=== PATIENT | female | born 1990 | race African-American/Black ===

== ENCOUNTER 2020-03-03 08:19 | Emergency (ER) | payer SELFPAY ==
[~2020-03-03] VITALS: Ht 160 cm; Wt 94.8 kg
--- NOTE | 2020-03-03 08:36 | NUR ---
SEEN AND EXAMINED BY .
[2020-03-03] MEDS ORDERED: diphenhydrAMINE HCL 50 MG/ML VIAL ONE (08:55)
[2020-03-03] MEDS ORDERED: HYDROMORPHONE 1 MG/1 ML DISP.SYRIN ONE (08:56)
[2020-03-03] MEDS ORDERED: ONDANSETRON HCL/PF 4 MG/2 ML VIAL ONE (08:56)
[2020-03-03 09:00] LABS: BASOPHILS % (AUTO) 0.5 % (0.0-2.0); EOSINOPHILS % (AUTO) 5.5 % (0.0-6.0); HEMATOCRIT 33 % (33-45); HEMOGLOBIN 10.8 g/dL (11.5-14.8); LYMPHOCYTES # (AUTO) 2.2 /CMM (0.8-4.8); LYMPHOCYTES % (AUTO) 25.5 % (20.0-44.0); MEAN CORPUSCULAR HGB CONC 33 g/dl (31.0-36.0); MEAN CORPUSCULAR VOLUME 82 fL (82-100); MONOCYTES % (AUTO) 11.2 % (2.0-12.0); NEUTROPHILS # (AUTO) 4.9 /CMM (1.8-8.9); NEUTROPHILS % (AUTO) 57.3 % (43.0-81.0); PLATELET COUNT (AUTO) 304 /CMM (150-450); RED BLOOD CELL COUNT(AUTO) 4.05 MIL/uL (4.0-5.2); WHITE BLOOD COUNT (AUTO) 8.6 K/uL (4.3-11.0)
[2020-03-03] MEDS ORDERED: IV NS 0.9% 1,000 ML BAG IV ONE (09:00)
[2020-03-03] MEDS ORDERED: HYDROMORPHONE 1 MG/1 ML DISP.SYRIN IV ONE (09:00)
[2020-03-03] MEDS ORDERED: ONDANSETRON HCL/PF 4 MG/2 ML VIAL IV ONE (09:00)
[2020-03-03] MEDS ORDERED: diphenhydrAMINE HCL 50 MG/ML VIAL IV ONE (09:00)
[2020-03-03 09:06] LABS: CALCIUM, SERUM 8.3 mg/dL (8.5-10.1); CREATININE 0.8 mg/dL (0.6-1.3); POTASSIUM 3.3 mmol/L (3.5-5.1)
[2020-03-03 09:12] LABS: ALBUMIN 2.8 g/dL (3.4-5.0); BILIRUBIN,DIRECT 0.1 mg/dL (0.0-0.2); BILIRUBIN,TOTAL 0.2 mg/dL (0.2-1.0)
--- NOTE | 2020-03-03 09:36 | NUR ---
Patient discharged to home in stable condition. Written and verbal after care instructions given. Patient verbalizes understanding of instruction. IV removed. Catheter intact and site benign. Pressure and 4x4 applied to site. No bleeding noted.
[2020-03-03 09:39] VITALS: BP 115/78
== END 2020-03-03 09:39 | disposition home or self-care (01) ==
LOC: ER 08:23
DX: D57.00 Hb-SS disease with crisis, unspecified (principal); Z88.0 Allergy status to penicillin; Z88.1 Allergy status to other antibiotic agents
CPT/HCPCS: 36415; 71045; 80048; 80076; 83690; 85025; 96361; 96374; 96375; 99284; J1170; J1200; J2405; J7030

== ENCOUNTER 2020-08-18 08:44 | Emergency (ER) | payer SELFPAY ==
[~2020-08-18] VITALS: Ht 160 cm; Wt 86.2 kg
[2020-08-18] MEDS ORDERED: HYDROMORPHONE MDV 0.5 MG in IV D5W 50 ML IV STA (09:04)
[2020-08-18] MEDS ORDERED: IV NS 0.9% 500 ML BAG IV ONE (09:30)
[2020-08-18] MEDS ORDERED: DIPHENHYDRAMINE HCL 12.5 MG/5 ML UDC PO ONE ×2 (09:30→11:00)
--- NOTE | 2020-08-18 09:30 | NUR ---
BIB SELF C/O BODY PAIN FOR 2 DAYS. HX SICKLE CELL. PT AAOX4, VSS. RR EVEN & UNLABORED. DENIES CP, SOB, DIZZINESS, N/V/D AT THIS TIME. PT SEEN & EVAL'D BY DR. FARLEY. WILL CONT TO MONITOR.
[2020-08-18] MEDS ORDERED: HYDROMORPHONE 1 MG/1 ML DISP.SYRIN ONE ×2 (10:21→11:07)
[2020-08-18] MEDS ORDERED: diphenhydrAMINE HCL 50 MG/ML VIAL ONE (10:22)
[2020-08-18 10:31] LABS: BASOPHILS # (AUTO) 0.1 /CMM (0.0-0.2); BASOPHILS % (AUTO) 0.9 % (0.0-2.0); EOSINOPHILS % (AUTO) 5.9 % (0.0-6.0); HEMATOCRIT 34 % (33-45); HEMOGLOBIN 10.5 g/dL (11.5-14.8); LYMPHOCYTES % (AUTO) 16.8 % (20.0-44.0); MEAN CORPUSCULAR HGB CONC 31 g/dl (31.0-36.0); MEAN CORPUSCULAR VOLUME 69 fL (82-100); MONOCYTES % (AUTO) 8.7 % (2.0-12.0); NEUTROPHILS % (AUTO) 67.7 % (43.0-81.0); PLATELET COUNT (AUTO) 356 /CMM (150-450); RED BLOOD CELL COUNT(AUTO) 4.91 MIL/uL (4.0-5.2); WHITE BLOOD COUNT (AUTO) 11.8 K/uL (4.3-11.0)
--- NOTE | 2020-08-18 10:37 | NUR ---
MEDICATED PER ERMD ORDER, PT ADRI WELL. WILL CONT TO MONITOR.
[2020-08-18 10:38] LABS: CALCIUM, SERUM 8.9 mg/dL (8.5-10.1); CREATININE 0.9 mg/dL (0.6-1.3); POTASSIUM 3.7 mmol/L (3.5-5.1)
[2020-08-18 10:44] LABS: ALBUMIN 3.4 g/dL (3.4-5.0); BILIRUBIN,DIRECT 0.1 mg/dL (0.0-0.2); BILIRUBIN,TOTAL 0.2 mg/dL (0.2-1.0)
[2020-08-18] MEDS ORDERED: diphenhydrAMINE HCL 50 MG/ML VIAL IV ONE (11:00)
[2020-08-18] MEDS ORDERED: HYDROMORPHONE 1 MG/1 ML DISP.SYRIN IV ONE (11:00)
[2020-08-18] MEDS ORDERED: diphenhydrAMINE HCL 25 MG CAPSULE ONE (11:07)
--- NOTE | 2020-08-18 11:45 | NUR ---
DILAUDID 1MG IN 500ML NS ENDTIME 1145H. WELL TOLERATED. V/S STABLE.
[2020-08-18 11:47] VITALS: BP 116/82
== END 2020-08-18 11:48 | disposition home or self-care (01) ==
LOC: ER 08:49
DX: D57.00 Hb-SS disease with crisis, unspecified (principal); Z88.0 Allergy status to penicillin; Z88.1 Allergy status to other antibiotic agents
CPT/HCPCS: 36415; 80048; 80076; 85025; 85045; 86850; 96365; 96375; 96376; 99284; J1170 ×3; J1200; J7040; J7060 ×2; Q0163 ×3

== ENCOUNTER 2020-09-10 19:10 | Emergency (ER) | payer SELFPAY ==
[~2020-09-10] VITALS: Ht 160 cm; Wt 86.2 kg
--- NOTE | 2020-09-10 19:15 | NUR ---
The patient bibs for c/o gen body pain x 2days, worse today, hx of sickle cell. Rates pain 8/10. In room air and denies SOB. Respiration regular and unlabored. Will continue to monitor the patient.
[2020-09-10] MEDS ORDERED: IV NS 0.9% 1,000 ML BAG IV ONE (20:00)
[2020-09-10] MEDS ORDERED: HYDROMORPHONE 1 MG/1 ML DISP.SYRIN ONE ×3 (20:30→22:18)
[2020-09-10] MEDS ORDERED: ONDANSETRON HCL/PF 4 MG/2 ML VIAL IVP ONE (20:30)
[2020-09-10] MEDS ORDERED: HYDROMORPHONE INJ 2 MG/ML DISP.SYRIN IV ONE (20:30)
[2020-09-10] MEDS ORDERED: diphenhydrAMINE HCL 50 MG/ML VIAL IV ONE (20:30)
[2020-09-10] MEDS ORDERED: ONDANSETRON HCL/PF 4 MG/2 ML VIAL ONE (20:31)
[2020-09-10] MEDS ORDERED: diphenhydrAMINE HCL 50 MG/ML VIAL ONE (20:31)
--- NOTE | 2020-09-10 20:41 | NUR ---
CALLED PHARMACY RE: DILAUDID PULLED OUT DILAUDID 1MG, WASTED 1MG INSTEAD OF 0.5MG WITH TIMBO CAMP CALLED [facility] PHARMACIST TO REPORT, PER [facility], DO A RETURN, BUT UNABLE D/T MEDS BEING WASTED ALREADY. ADMINISTERED DILAUDID 0.5MG IVP. WITNESSED WITH ROSA MARIA MARTINI RN.
[2020-09-10 20:45] LABS: BASOPHILS # (AUTO) 0.1 /CMM (0.0-0.2); BASOPHILS % (AUTO) 1.1 % (0.0-2.0); EOSINOPHILS % (AUTO) 6.1 % (0.0-6.0); HEMATOCRIT 32 % (33-45); HEMOGLOBIN 10.1 g/dL (11.5-14.8); LYMPHOCYTES # (AUTO) 2.2 /CMM (0.8-4.8); MEAN CORPUSCULAR HGB CONC 32 g/dl (31.0-36.0); MEAN CORPUSCULAR VOLUME 71 fL (82-100); MONOCYTES # (AUTO) 0.8 /CMM (0.1-1.30); NEUTROPHILS # (AUTO) 6.4 /CMM (1.8-8.9); NEUTROPHILS % (AUTO) 62.8 % (43.0-81.0); PLATELET COUNT (AUTO) 331 /CMM (150-450); RED BLOOD CELL COUNT(AUTO) 4.48 MIL/uL (4.0-5.2); WHITE BLOOD COUNT (AUTO) 10.1 K/uL (4.3-11.0)
[2020-09-10 21:06] LABS: EOSINOPHILS % (MANUAL) 5 % (0-4); LYMPHOCYTES % (MANUAL) 28 % (16-48); MONOCYTES % (MANUAL) 6 % (0-11.0); NEUTROPHILS % (MANUAL) 61 (42-76)
[2020-09-10 21:19] LABS: CALCIUM, SERUM 9.2 mg/dL (8.5-10.1); CREATININE 0.7 mg/dL (0.6-1.3)
[2020-09-10 21:26] LABS: ALBUMIN 3.2 g/dL (3.4-5.0); BILIRUBIN,DIRECT 0.1 mg/dL (0.0-0.2); BILIRUBIN,TOTAL 0.2 mg/dL (0.2-1.0); TOTAL PROTEIN, SERUM 7.7 g/dL (6.4-8.2)
[2020-09-10] MEDS ORDERED: HYDROMORPHONE 1 MG/1 ML DISP.SYRIN IV ONE ×2 (22:00→22:30)
[2020-09-10 23:24] VITALS: BP 134/70
== END 2020-09-10 23:25 | disposition home or self-care (01) ==
LOC: ER 19:11
DX: D57.00 Hb-SS disease with crisis, unspecified (principal); D50.9 Iron deficiency anemia, unspecified; E16.2 Hypoglycemia, unspecified; E87.8 Other disorders of electrolyte and fluid balance, not elsewhere classified; Z88.0 Allergy status to penicillin; Z88.1 Allergy status to other antibiotic agents
CPT/HCPCS: 36415; 80048; 80076; 85007; 85025; 85045; 96361; 96374; 96375; 96376; 99284; J1170 ×3; J1200; J2405; J7030

== ENCOUNTER 2020-10-10 19:23 | Emergency (ER) | payer SELFPAY ==
[~2020-10-10] VITALS: Ht 160 cm; Wt 90.7 kg
--- NOTE | 2020-10-10 19:48 | NUR ---
PRSENTED TO THE ER FOR C/O GNERALIZED BODY FEVER, NO FEVER, NO COUGH. PT W. HX OF SICKLE CELL ANEMIA. AMBULATORY TO BED 3 ER. WAS PLACED ON A MONITOR, VSS. WILL CONT TO MONITOR
[2020-10-10] MEDS ORDERED: ONDANSETRON HCL/PF 4 MG/2 ML VIAL IVP ONE (20:00)
[2020-10-10] MEDS ORDERED: HYDROMORPHONE INJ 2 MG/ML DISP.SYRIN IV ONE (20:00)
[2020-10-10] MEDS ORDERED: IV NS 0.9% 1,000 ML BAG IV ONE ×2 (20:00→23:00)
[2020-10-10] MEDS ORDERED: ONDANSETRON HCL/PF 4 MG/2 ML VIAL ONE (20:08)
[2020-10-10] MEDS ORDERED: HYDROMORPHONE 1 MG/1 ML DISP.SYRIN ONE ×3 (20:08→23:12)
--- NOTE | 2020-10-10 21:02 | NUR ---
MULTIPLR ATTEMPTS TO START AN IV LINE BY TWO DIFFERENT RNs. UNSUCCESSFUL. DR ONEILL AND LUZ ELENA CHAVEZ MADE AWARE
[2020-10-10 21:12] LABS: CALCIUM, SERUM 9.2 mg/dL (8.5-10.1); CREATININE 0.8 mg/dL (0.6-1.3); POTASSIUM 3.4 mmol/L (3.5-5.1)
[2020-10-10] MEDS ORDERED: diphenhydrAMINE HCL 50 MG/ML VIAL ONE ×2 (21:14→23:12)
[2020-10-10 21:18] LABS: BILIRUBIN,DIRECT 0.1 mg/dL (0.0-0.2); BILIRUBIN,TOTAL 0.3 mg/dL (0.2-1.0); TOTAL PROTEIN, SERUM 7.5 g/dL (6.4-8.2)
[2020-10-10] MEDS ORDERED: diphenhydrAMINE HCL 50 MG/ML VIAL IV ONE ×2 (21:30→23:00)
[2020-10-10 22:01] LABS: BASOPHILS % (AUTO) 0.2 % (0.0-2.0); EOSINOPHILS % (AUTO) 3.7 % (0.0-6.0); HEMATOCRIT 30 % (33-45); HEMOGLOBIN 9.6 g/dL (11.5-14.8); LYMPHOCYTES # (AUTO) 1.9 /CMM (0.8-4.8); LYMPHOCYTES % (AUTO) 17.9 % (20.0-44.0); MEAN CORPUSCULAR HGB CONC 32 g/dl (31.0-36.0); MEAN CORPUSCULAR VOLUME 73 fL (82-100); MONOCYTES # (AUTO) 0.8 /CMM (0.1-1.30); MONOCYTES % (AUTO) 7.7 % (2.0-12.0); NEUTROPHILS # (AUTO) 7.5 /CMM (1.8-8.9); NEUTROPHILS % (AUTO) 70.5 % (43.0-81.0); PLATELET COUNT (AUTO) 298 /CMM (150-450); RED BLOOD CELL COUNT(AUTO) 4.03 MIL/uL (4.0-5.2); WHITE BLOOD COUNT (AUTO) 10.6 K/uL (4.3-11.0)
[2020-10-10] MEDS ORDERED: HYDROMORPHONE 1 MG/1 ML DISP.SYRIN IV ONE ×2 (22:30→23:00)
[2020-10-10] MEDS ORDERED: OXYC10TA49 PO (23:05)
--- NOTE | 2020-10-10 23:15 | NUR ---
DILAUDID 0.5MG WAS WASTED, WITHNESSED BY ANOTHER RN, CHRISTIANO; AND 0.5G GIVEN ORDERED .
--- NOTE | 2020-10-11 00:09 | NUR ---
PT is medically stable for d/c. IV removed. Catheter intact and site benign. Pressure and 4x4 applied to site. No bleeding noted.Patient discharged to home in stable condition. Rx and Written and verbal after care instructions given. Patient verbalizes understanding of instruction.
[2020-10-11 00:10] VITALS: BP 131/77
== END 2020-10-11 00:10 | disposition home or self-care (01) ==
LOC: ER 19:23
DX: D57.00 Hb-SS disease with crisis, unspecified (principal); E66.8 Other obesity; Z68.35 Body mass index [BMI] 35.0-35.9, adult; Z88.1 Allergy status to other antibiotic agents; Z79.899 Other long term (current) drug therapy; Z86.73 Personal history of transient ischemic attack (TIA), and cerebral infarction without residual deficits; Z88.0 Allergy status to penicillin
CPT/HCPCS: 36415; 71045; 80048; 80076; 84702; 85025; 85045; 85730; 86850; 93005; 96361; 96374; 96375; 96376; 99285; J1170 ×2; J1200 ×2; J2405; J7030 ×2

== ENCOUNTER 2020-10-13 14:00 | Emergency (ER) | payer SELFPAY ==
[~2020-10-13] VITALS: Ht 160 cm; Wt 90.7 kg
[~2020-10-13 14:00] MED LIST: OXYC10TA49 PO
--- NOTE | 2020-10-13 14:41 | NUR ---
DR MAN AT BEDSIDE FOR EVAL.
[2020-10-13] MEDS ORDERED: IV NS 0.9% 1,000 ML BAG IV ONE (15:00)
[2020-10-13] MEDS ORDERED: HYDROMORPHONE MDV 0.5 MG in IV D5W 50 ML IV PRN (15:00)
[2020-10-13] MEDS ORDERED: DIPHENHYDRAMINE HCL 12.5 MG/5 ML UDC PO ONE (15:00)
[2020-10-13] MEDS ORDERED: diphenhydrAMINE HCL 25 MG CAPSULE ONE (16:23)
[2020-10-13] MEDS ORDERED: HYDROMORPHONE 1 MG/1 ML DISP.SYRIN ONE (16:24)
--- NOTE | 2020-10-13 16:36 | NUR ---
PIN DRAFTING MACHINE OPERATOR AT BEDSIDE FOR EVAL.
[2020-10-13 16:47] LABS: BASOPHILS # (AUTO) 0.1 /CMM (0.0-0.2); BASOPHILS % (AUTO) 0.5 % (0.0-2.0); EOSINOPHILS % (AUTO) 7.7 % (0.0-6.0); HEMATOCRIT 31 % (33-45); HEMOGLOBIN 9.7 g/dL (11.5-14.8); LYMPHOCYTES # (AUTO) 1.7 /CMM (0.8-4.8); LYMPHOCYTES % (AUTO) 15.2 % (20.0-44.0); MEAN CORPUSCULAR HGB CONC 32 g/dl (31.0-36.0); MEAN CORPUSCULAR VOLUME 73 fL (82-100); MONOCYTES # (AUTO) 1.1 /CMM (0.1-1.30); MONOCYTES % (AUTO) 9.6 % (2.0-12.0); NEUTROPHILS # (AUTO) 7.4 /CMM (1.8-8.9); PLATELET COUNT (AUTO) 308 /CMM (150-450); RED BLOOD CELL COUNT(AUTO) 4.21 MIL/uL (4.0-5.2); WHITE BLOOD COUNT (AUTO) 11.1 K/uL (4.3-11.0)
[2020-10-13 16:54] LABS: CALCIUM, SERUM 9.2 mg/dL (8.5-10.1); CREATININE 0.6 mg/dL (0.6-1.3); POTASSIUM 3.9 mmol/L (3.5-5.1)
[2020-10-13 16:59] LABS: ALBUMIN 2.8 g/dL (3.4-5.0); BILIRUBIN,DIRECT 0.1 mg/dL (0.0-0.2); BILIRUBIN,TOTAL 0.2 mg/dL (0.2-1.0); TOTAL PROTEIN, SERUM 7.1 g/dL (6.4-8.2)
--- NOTE | 2020-10-13 17:44 | NUR ---
Patient discharged to home in stable condition. Written and verbal after care instructions given. Patient verbalizes understanding of instruction.IV removed. Catheter intact and site benign. Pressure and 4x4 applied to site. No bleeding noted.
[2020-10-13 17:45] VITALS: BP 115/70
[2020-10-13 17:47] LABS: EOSINOPHILS % (MANUAL) 4 % (0-4); LYMPHOCYTES % (MANUAL) 22 % (16-48); MONOCYTES % (MANUAL) 7 % (0-11.0); NEUTROPHILS % (MANUAL) 67 (42-76)
== END 2020-10-13 17:45 | disposition home or self-care (01) ==
LOC: ER 14:13
DX: D50.9 Iron deficiency anemia, unspecified (principal); M79.10 Myalgia, unspecified site; G89.29 Other chronic pain; Z86.73 Personal history of transient ischemic attack (TIA), and cerebral infarction without residual deficits; Z88.0 Allergy status to penicillin; Z88.1 Allergy status to other antibiotic agents
CPT/HCPCS: 36415; 71045; 80048; 80076; 85007; 85025; 85045; 85660; 93005; 96365; 99285; J1170; J7030; J7060; Q0163

== ENCOUNTER 2020-12-26 21:46 | Emergency (ER) | payer SELFPAY ==
[~2020-12-26] VITALS: Ht 160 cm; Wt 90.7 kg
--- NOTE | 2020-12-26 22:25 | NUR ---
PT BIBS FROM HOME WITH C/O OF ONGOING VAGINAL BLEEEDING S/P D&C ABOUT 2 MONTHS AGO, BLEEDING STOPPED 3 DAYS AGO AND HAD A SUDDEN EPISODE TOPAY. PT WAS SEEN AND EXAMINED BY DR BEAL. BREATHING EVEN AND UNLABORED, VS STABLE. PT ATTACHED TO MONITOR AND PULSE OX. WILL CONTINUE TO MONITOR AND CARRY OUT MD ORDERS.
--- NOTE | 2020-12-26 22:35 | NUR ---
IV LINE ESTABLISHED AT [facility] 24G, PATENT AND FLUSHING WELL.
--- NOTE | 2020-12-26 22:36 | NUR ---
BLOOD DRAWN AND SENT TO LAB.
--- NOTE | 2020-12-26 22:45 | NUR ---
URINE COLLECTED AND SENT TO LAB
--- NOTE | 2020-12-26 22:50 | NUR ---
PT C/O PAIN AND ITCHING ON IV SITE AT [facility]. IV CATHETER REMOVED, NO BLEEDING NOTED. REINSERTED ANOTHER IV LINE AT [facility] 24G BY JORGE IZQUIERDO. IV PATENT AND FLUSHING.
[2020-12-26 22:55] LABS: BASOPHILS # (AUTO) 0.1 K/uL (0.0-0.2); BASOPHILS % (AUTO) 1.5 % (0.0-2.0); EOSINOPHILS % (AUTO) 5.3 % (0.0-6.0); HEMATOCRIT 33 % (33-45); HEMOGLOBIN 10.1 g/dL (11.5-14.8); LYMPHOCYTES # (AUTO) 2.6 K/uL (0.8-4.8); LYMPHOCYTES % (AUTO) 29.7 % (20.0-44.0); MEAN CORPUSCULAR HGB CONC 31 g/dl (31.0-36.0); MEAN CORPUSCULAR VOLUME 70 fL (82-100); MONOCYTES # (AUTO) 0.8 K/uL (0.1-1.30); MONOCYTES % (AUTO) 8.9 % (2.0-12.0); NEUTROPHILS # (AUTO) 4.8 K/uL (1.8-8.9); NEUTROPHILS % (AUTO) 54.6 % (43.0-81.0); PLATELET COUNT (AUTO) 406 K/uL (150-450); RED BLOOD CELL COUNT(AUTO) 4.71 MIL/uL (4.0-5.2); WHITE BLOOD COUNT (AUTO) 8.8 K/uL (4.3-11.0)
[2020-12-26] MEDS ORDERED: HYDROMORPHONE INJ 2 MG/ML DISP.SYRIN IV ONE (23:00)
[2020-12-26] MEDS ORDERED: IV NS 0.9% 500 ML BAG IV ONE (23:00)
[2020-12-26] MEDS ORDERED: HYDROMORPHONE 1 MG/1 ML DISP.SYRIN ONE (23:07)
[2020-12-26 23:12] LABS: CREATININE 0.9 mg/dL (0.6-1.3); POTASSIUM 3.9 mmol/L (3.5-5.1)
[2020-12-26 23:17] LABS: ALBUMIN 3.6 g/dL (3.4-5.0); BILIRUBIN,DIRECT 0.1 mg/dL (0.0-0.2); BILIRUBIN,TOTAL 0.2 mg/dL (0.2-1.0); TOTAL PROTEIN, SERUM 8.3 g/dL (6.4-8.2)
[2020-12-26] MEDS ORDERED: diphenhydrAMINE HCL 50 MG/ML VIAL IV ONE (23:30)
[2020-12-26 23:33] LABS: BILIRUBIN,URINE Negative (NEGATIVE); COLOR,URINE YELLOW (YELLOW); LEUKOCYTE ESTERASE ,URINE Negative (NEGATIVE); NITRITE, URINE Negative (NEGATIVE); PH,URINE 5.5 (5.0-8.0); PROTEIN,URINE Negative (NEGATIVE); UGLUCOSE Negative (NEGATIVE); UROBILINOGEN,URINE 0.2 EU/dL (0.2)
[2020-12-26] MEDS ORDERED: diphenhydrAMINE HCL 50 MG/ML VIAL ONE (23:35)
[2020-12-26 23:49] LABS: BACTERIA,URINE Rare /HPF (None Seen); SQUAMOUS EPITHELIAL CELL,UR Few /HPF (None Seen); WBC,URINE NONE SEEN /HPF (0-3)
--- NOTE | 2020-12-27 00:48 | NUR ---
Patient discharged to home in stable condition. Written and verbal after care instructions given. Patient upset, stated she's still in pain and wanted to speak with MD. Dr Diaz went to bedside and explained to pt current findings. Pt refused to sign discharge paperwork. IV line removed, pressure and 2x2 applied. Pt ambulatory with a steady gait.
[2020-12-27 01:18] VITALS: BP 123/82
== END 2020-12-27 00:48 | disposition home or self-care (01) ==
LOC: ER 21:46
DX: N93.8 Other specified abnormal uterine and vaginal bleeding (principal); G89.29 Other chronic pain; E66.9 Obesity, unspecified; Z68.35 Body mass index [BMI] 35.0-35.9, adult; Z86.73 Personal history of transient ischemic attack (TIA), and cerebral infarction without residual deficits; Z90.49 Acquired absence of other specified parts of digestive tract; Z88.0 Allergy status to penicillin; Z88.1 Allergy status to other antibiotic agents; Z79.899 Other long term (current) drug therapy
CPT/HCPCS: 36415; 76856; 80048; 80076; 81001; 84703; 85007; 85025; 85730; 96361; 96374; 96375; 99284; J1170; J1200; J7040

== ENCOUNTER 2021-07-07 19:56 | Emergency (ER) | payer SELFPAY ==
[~2021-07-07] VITALS: Ht 160 cm; Wt 99.8 kg
--- NOTE | 2021-07-07 20:50 | NUR ---
BIBS FOR C/O GENERALIZED BODY PAIN DUE TO SICKLE CELL DIS X 4 DAYS. PATIENT ALERT AND ORIENTED X3. AMBULATORY WITH NON LABORED BREATHING. PLACED IN BED 10 ON MONITOR
[2021-07-07] MEDS ORDERED: HYDROMORPHONE 1 MG/1 ML DISP.SYRIN IV ONE (21:30)
[2021-07-07] MEDS ORDERED: HYDROMORPHONE 1 MG/1 ML DISP.SYRIN ONE ×2 (21:42→23:59)
[2021-07-07] MEDS ORDERED: diphenhydrAMINE HCL 50 MG/ML VIAL ONE ×2 (21:43→22:58)
[2021-07-07] MEDS ORDERED: diphenhydrAMINE HCL 50 MG/ML VIAL IV ONE ×2 (22:00→23:00)
--- NOTE | 2021-07-07 22:03 | NUR ---
ER [employer] HR DEVELOPER @ BEDSIDE
[2021-07-07 22:21] LABS: CALCIUM, SERUM 8.8 mg/dL (8.5-10.1); POTASSIUM 3.9 mmol/L (3.5-5.1)
[2021-07-07 22:27] LABS: BASOPHILS # (AUTO) 0.1 K/uL (0.0-0.2); BASOPHILS % (AUTO) 1.3 % (0.0-2.0); HEMATOCRIT 32 % (33-45); HEMOGLOBIN 9.7 g/dL (11.5-14.8); LYMPHOCYTES # (AUTO) 2.4 K/uL (0.8-4.8); LYMPHOCYTES % (AUTO) 29.9 % (20.0-44.0); MEAN CORPUSCULAR HGB CONC 30 g/dl (31.0-36.0); MEAN CORPUSCULAR VOLUME 65 fL (82-100); MONOCYTES # (AUTO) 0.5 K/uL (0.1-1.30); MONOCYTES % (AUTO) 6.7 % (2.0-12.0); NEUTROPHILS # (AUTO) 4.8 K/uL (1.8-8.9); NEUTROPHILS % (AUTO) 59.1 % (43.0-81.0); PLATELET COUNT (AUTO) 406 K/uL (150-450); RED BLOOD CELL COUNT(AUTO) 4.95 MIL/uL (4.0-5.2); WHITE BLOOD COUNT (AUTO) 8.1 K/uL (4.3-11.0)
[2021-07-07] MEDS ORDERED: HYDROMORPHONE INJ 2 MG/ML DISP.SYRIN ONE (22:59)
[2021-07-07] MEDS ORDERED: HYDROMORPHONE INJ 2 MG/ML DISP.SYRIN IV ONE (23:00)
--- NOTE | 2021-07-07 23:06 | NUR ---
PROVIDED PATIENT WITH FOOD AND DRINK.
[2021-07-08] MEDS ORDERED: HYDROMORPHONE 1 MG/1 ML DISP.SYRIN IV ONE
--- NOTE | 2021-07-08 00:12 | NUR ---
Patient discharged to home in stable condition. Written and verbal after care instructions given. Patient verbalizes understanding of instruction.
[2021-07-08 00:13] VITALS: BP 141/80
[2021-07-08 02:37] LABS: EOSINOPHILS % (MANUAL) 7 % (0-4); LYMPHOCYTES % (MANUAL) 28 % (16-48); MONOCYTES % (MANUAL) 6 % (0-11.0); NEUTROPHILS % (MANUAL) 59 (42-76)
== END 2021-07-08 00:13 | disposition home or self-care (01) ==
LOC: ER 19:59
DX: D57.00 Hb-SS disease with crisis, unspecified (principal); Z86.73 Personal history of transient ischemic attack (TIA), and cerebral infarction without residual deficits; Z90.49 Acquired absence of other specified parts of digestive tract; Z98.890 Other specified postprocedural states; Z88.0 Allergy status to penicillin; Z88.1 Allergy status to other antibiotic agents
CPT/HCPCS: 36415; 80048; 85007; 85025; 85045; 96374; 96375; 96376 ×2; 99284; J1170 ×3; J1200 ×2